=== PATIENT | male | born 1985 | race Asian ===

== ENCOUNTER 2017-08-11 06:01 | Inpatient (IN) | payer OTHER ==
[~2017-08-11] VITALS: Ht 185.4 cm; Wt 107.5 kg
[2017-08-11] VITALS (11 sets, daily range): BP systolic 102–144; BP diastolic 52–91
[2017-08-11] MEDS ORDERED: oxyCODONE 5mg IR tab ORAL PRN ×3 (06:30→06:45)
[2017-08-11] MEDS ORDERED: Morphine Sulfate 4mg/ml Inj IM PRN (06:30)
[2017-08-11] MEDS ORDERED: Chloraseptic Spray 20mL Bottle ORAL PRN (06:30)
[2017-08-11] MEDS ORDERED: Milk of Magnesia 30ml Ud ORAL PRN (06:45)
[2017-08-11] MEDS ORDERED: Dexamethasone 20mg/5ml IVP ONE (07:00)
[2017-08-11] MEDS ORDERED: ceFAZolin sod 1 GM in NS 55 ML IVPB ONE (07:00)
[2017-08-11] MEDS ORDERED: BP MED PO (07:04)
[2017-08-11] MEDS ORDERED: Sodium Chloride 10ml vial INJ ONE (08:38)
[2017-08-11] MEDS ORDERED: Lidocaine 1% MPF 10mg/ml 5ml ONE (08:38)
[2017-08-11] MEDS ORDERED: Lidocaine 1% Plain 30 ml INJ ONE ×3 (08:39→11:46)
[2017-08-11] MEDS ORDERED: LR 1000ml 1,000 ML IVLG SCH (08:42)
--- NOTE | 2017-08-11 08:44 | Anethesia Preoperative Eval ---
Anesthesia Pre-op PMH/ROS General Date of Evaluation: August 11, 2017 Time of Evaluation: 09:28 Anesthesiologist: Milagros ASA Score: ASA 2 Mallampati Score Class I : Soft palate, uvula, fauces, pillars visible Class II: Soft palate, uvula, fauces visible Class III: Soft palate, base of uvula visible Class IV: Only hard plate visible Mallampati Classification: Class II Surgeon: Julio Diagnosis: Back Pain Surgical Procedure: L4-5, L5-S1 Microdiscectomy Anesthesia History: none Family History: no anesthesia problems Allergies: Coded Allergies: No Known Allergies (Unverified , 08/11/17) Medications: see eMAR Past Medical History Cardiovascular: Reports: HTN Other: obesity - BMI 32 Anesthesia Pre-op Phys. Exam Physician Exam Last Vital Signs Date Time Temp Pulse Resp B/P (MAP) Pulse Ox O2 Delivery O2 Flow Rate FiO2 08/11/17 06:51 97.8 70 18 144/91 98 Room Air 97.8 Constitutional: NAD Neurologic: CN 2-12 intact Cardiovascular: RRR Respiratory: CTA Gastrointestinal: S/NT/ND Airway Exam Mallampati Score: Class II MO: full ROM: full Teeth: intact Anesthesia Pre-op A/P Risk Assessment & Plan Assessment: ASA 2 Plan: GA, BIS, GlideScope Status Change Before Surgery: No Pre-Antibiotics Dru Grams Ancef IV Given Within 1 Hr of Incision: Yes Time Given: 09:46 Arturo Linares MD August 11, 2017 08:44
[2017-08-11] MEDS ORDERED: Metoclopramide 10mg/2ml Inj IVP PRN (08:45)
[2017-08-11] MEDS ORDERED: LORazepam Inj 2mg/ml 1ml IV PRN (08:45)
[2017-08-11] MEDS ORDERED: Atropine Inj 1mg/10ml Syr IV PRN (08:45)
[2017-08-11] MEDS ORDERED: Acetaminophen (Non formulary) 100 ML IV SCH (08:45)
[2017-08-11] MEDS ORDERED: Norco 5mg/325mg tab ORAL PRN (08:45)
[2017-08-11] MEDS ORDERED: Ketorolac 30mg Inj IV PRN ×2 (08:45)
[2017-08-11] MEDS ORDERED: DiphenhydrAMINE 50mg/ml Inj IVP PRN (08:45)
[2017-08-11] MEDS ORDERED: oxyCODONE HCL/Acetaminophen 5/325mg ORAL PRN (08:45)
[2017-08-11] MEDS ORDERED: fentaNYL 100 mcg/2 mL IV PRN (08:45)
[2017-08-11] MEDS ORDERED: Midazolam 2mg/2ml Inj IVP PRN (08:45)
[2017-08-11] MEDS ORDERED: HYDROcodone/Acetamin 7.5/325 tab ORAL PRN (08:45)
[2017-08-11] MEDS ORDERED: fentaNYL 100 mcg/2 mL IV ONE ×2 (08:46→12:39)
--- NOTE | 2017-08-11 08:53 | Pre-Procedure Note/Attestation ---
Pre-Procedure Note/Attestation Complete Prior to Procedure Planned Procedure: right Procedure Narrative: Microdiscectomy, decompression nerve roots L4-5, L5-S1 Indications for Procedure Pre-Operative Diagnosis: HNP L4-5, L5-S1 Attestation I attest that I discussed the nature of the procedure; its benefits; risks and complications; and alternatives (and the risks and benefits of such alternatives ), prior to the procedure, with the patient (or the patient's legal mechanical service representative). I attest that, if there was a reasonable possibility of needing a blood transfusion, the patient (or the patient's legal mechanical service representative) was given the [facility] standardized written summary, pursuant to the Armand Alejo Blood Safety Act ([place] Health and Safety Code # 1645, as amended). I attest that I re-evaluated the patient just prior to the surgery and that there has been no change in the patient's H&P, except as documented below: ROMEL MARCELINO August 11, 2017 08:53
[2017-08-11] MEDS: Docusate 100mg/10ml Liq NG SCH ×2 (09:00→18:00)
[2017-08-11] MEDS ORDERED: Thrombin 5000 units TOPIC ONE ×2 (09:21→11:06)
[2017-08-11] MEDS ORDERED: Bacitracin 50000 Units Vial ONE (09:22)
[2017-08-11] MEDS ORDERED: Zemuron 50mg/5ml Inj IV ONE ×2 (09:27→09:30)
[2017-08-11] MEDS ORDERED: LR 1000ml ONE (09:30)
[2017-08-11] MEDS ORDERED: Sterile Water Irrig 1000ml IRRIG ONE (09:30)
[2017-08-11] MEDS ORDERED: NS Irrig 1000ml ONE (09:30)
[2017-08-11] MEDS ORDERED: Propofol 1,000mg/ 100ml btl IV ONE (09:30)
--- NOTE | 2017-08-11 10:22 | Immediate Post-Op Evaluation ---
Immediate Post-Op Evalulation Immediate Post-Op Evalulation Procedure: L4-5, L5-S1 Microdiscectomy Date of Evaluation: August 11, 2017 Time of Evaluation: 14:07 IV Fluids: 1000 LR Blood Products: 0 Estimated Blood Loss: 50 Urinary Output: 0 Blood Pressure Systolic: 106 Blood Pressure Diastolic: 61 Pulse Rate: 76 Respiratory Rate: 16 O2 Sat by Pulse Oximetry: 99 Pain Score (1-10): 2 Nausea: No Vomiting: No Complications 0 Patient Status: awake, reacts, patent, extubated, none Hydration Status: adequate Dru Grams Ancef IV Given Within 1 Hr of Incision: Yes Time Given: 09:53 Arturo Linares MD August 11, 2017 10:22
--- NOTE | 2017-08-11 10:23 | 48 Hour Post Anesthesia Eval ---
Post Anesthesia Evaluation Procedure: L4-5, L5-S1 Microdiscectomy Date of Evaluation: August 11, 2017 Time of Evaluation: 16:12 Blood Pressure Systolic: 128 0: 64 Pulse Rate: 78 Respiratory Rate: 18 Temperature (Fahrenheit): 98.2 O2 Sat by Pulse Oximetry: 99 Airway: patent Nausea: No Vomiting: No Pain Intensity: 2 Hydration Status: adequate Cardiopulmonary Status: Stable Mental Status/LOC: patient returned to baseline Follow-up Care/Observations: 0 Post-Anesthesia Complications: 0 Follow-up care needed: ready to discharge Arturo Linares MD August 11, 2017 10:23
[2017-08-11] MEDS ORDERED: Glycopyrrolate 0.2mg/ml 1ml Vial ONE (12:57)
--- NOTE | 2017-08-11 13:17 | Brief Operative Note ---
Immediate Post Operative Note Operative Note Pre-op Diagnosis: HNP L4-5, L5-S1 Procedure: Microdiskectomy L4-5 L5-S1 Dural repair (Durotomy from epidural steroids Microscope Xray Post-op Diagnosis: same as pre-op Findings: consistent w/pre-op dx studies, other Surgeon: Julio HILLMAN Grey Tender: Azalia MARTINEZ Anesthesiologist: Milagros HILLMAN Anesthesia: general Specimen: yes Complications: none Condition: stable Fluids: anesthesia Estimated Blood Loss: minimal Implant(s) used?: No ROMEL MARCELINO August 11, 2017 13:17
--- NOTE | 2017-08-11 14:25 | Diagnostic Imaging Report ---
Indication: Back pain Findings: Single fluoroscopic of the lumbar spine were obtained. Localization image posterior to the L4-5 disc noted. IMPRESSION: Intraoperative imaging
[2017-08-11] MEDS ORDERED: ceFAZolin sod 1 GM in D5W 55 ML IV SCH (18:00)
[2017-08-11] MEDS ORDERED: D5 1/2NS 1,000 ML IV SCH (18:00)
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
--- NOTE | 2017-08-11 23:16 | Operative Note - Dictated ---
DATE OF OPERATION: 08/11/2017 PREOPERATIVE DIAGNOSES: 1. L4-L5 right large herniated nucleus pulposus with lower extremity radiculopathy/neurologic deficit. 2. L5-S1 herniated nucleus pulposus. POSTOPERATIVE DIAGNOSES: 1. L4-L5 right large herniated nucleus pulposus with lower extremity radiculopathy/neurologic deficit. 2. L5-S1 herniated nucleus pulposus. The patient recently received epidural steroid injections, dural hole noted with dural repair. SURGEON: Dorian Kim, Ph.D., M.D. ELEMENTARY PRINCIPAL: MICHELLE Calhoun. ANESTHESIOLOGIST: Arturo Linares M.D. ANESTHESIA: General with intubation. ESTIMATED BLOOD LOSS: Minimal. POSTOPERATIVE CONDITION: Good/stable. SPECIMEN: Disc fragments to pathology. DESCRIPTION OF PROCEDURE: The patient was brought to the operating room and in the supine position general anesthesia with intubation was induced. IV antibiotics and IV Decadron were administered 30 minutes prior to incision time. Lumbodorsal spine was sterilely prepped and under sterile conditions, cross-table imaging was obtained with needles percutaneously placed into the subcutaneous tissue only demonstrating the correct level for incision placement. [place] were removed. Back was re-sterilely prepped and draped free in the usual sterile fashion. Of note is that needles were placed obliquely laterally. Longitudinal midline incision was sharply placed over the appropriate intervals through dermis and epidermis. Electrocautery dissection was carried through the subcutaneous tissue to the level of lumbodorsal fascia, was incised right of midline over the respective L4-L5 and superior S1 adis lamina. Marker was placed. Cross-table image obtained demonstrating the correct level for the dissection. L4-L5: A right hemilaminotomy with diskectomy and retrieval of a sequestered fragment and the right lateral gutter was undertaken under high-power magnification. Retractors were placed at the L5-S1 interval with soft tissue dissection without extension to the ligamentum flavum. Clear fluid was encountered, identified as consistent with cerebrospinal fluid. Dissection was extended distally over line S1, hemilaminotomy performed left with dissection carried distally with identification of the durotomy. Nerve root decompression undertaken. Dural repair with 6-0 Prolene under high-power magnification. Valsalva maneuver 40 mmHg, no leakage under high-power magnification. Dural repair with DuraGen followed with Tisseel. Wound irrigated with antibiotic-containing saline. DuraGen maintained in place with Tisseel. Sequential reapproximation of the lumbodorsal fascia, subcutaneous tissue, dermis and epidermis and a watertight closure. Transverse surgical strips applied followed with a glue (Dermabond). After Dermabond was hard, a sterile bandage was placed and maintained in place with tape. The patient was carefully turned from the prone to the supine position on the transport bed where he was awakened and extubated in the operating room and transported to postop recovery in good stable condition. Dorian Kim M.D. DR: GRECIA JOB#: [id number] CC:
--- NOTE | 2017-08-15 08:41 | Discharge Summary ---
Discharge Summary Hospital Course Date of Admission August 11, 2017 at 16:16 Date of Discharge August 11, 2017 at 21:30 Admitting Diagnosis Lumbar herniated disc Reason for Hospitalization: Elective surgery HPI Bean Chapa is a 32 year old male who was admitted on August 11, 2017 at 16:16 for Lumbar Herniated Disc. patient was admitted for elective surgery. Consultations dr Brian pain specialist Procedures s/p 08/11/[address] Kim L4-5, L5-S1 Microdiscectomy with dural repair Hospital Course status post surgery course of recovery uneventful pain management addressed pain specialist followed neurovascular intact dressing dry and intact ambulated, fall precautions maintained pulmonary toilet with incentive spirometry while in the bed started on diet and advanced as tolerated Chloraseptic [place] when necessary for comfort antiemetics as needed bowel regimen instituted GI prophylaxis provided blood pressure management with low dose of Norvasc, stable neurovascularly intact, dressing dry and intact, ambulated, pain controlled, tolerated diet and voided freely patient was stable for discharge with outpatient follow up with surgeon discharge instruction provided prescription provided signs and symptoms to report immediately explained in detail FINAL DIAGNOSIS 1. L4-L5 right large herniated nucleus pulposus with lower extremity radiculopathy/neurologic deficit. 2. L5-S1 herniated nucleus pulposus. 3. s/p microdiskectomy L4-5 L5-S1 and dural repair (durotomy from epidural steroids) Discharge Condition Upon Discharge: stable Discharge Disposition Patient was discharged home Discharge Instructions Discharge Instructions Special Instructions I have been assigned to complete a D/C Summary on this account. I was not involved in the patient management Anuradha Rebollar NP August 15, 2017 08:41
== END 2017-08-11 21:30 | disposition home or self-care (01) | DRG 519 ==
LOC: SUR 06:01 → 3E 16:16
DX: M51.16 Intervertebral disc disorders with radiculopathy, lumbar region (principal); G96.11 Dural tear; M51.27 Other intervertebral disc displacement, lumbosacral region; V89.2XXS Person injured in unspecified motor-vehicle accident, traffic, sequela; I10 Essential (primary) hypertension; Y84.8 Other medical procedures as the cause of abnormal reaction of the patient, or of later complication, without mention of misadventure at the time of the procedure
CPT/HCPCS: 72040; 76000; 87081; J2405